=== PATIENT | female | born 1965 | race Caucasian/White ===

== ENCOUNTER 2019-05-10 10:19 | Inpatient (IN) ==
--- NOTE | 2019-04-26 16:42 | PAT Medication Instructions ---
Medication Instructions Date of Service April 26, 2019 Home Medications tecxhgf-iiznigzuwnxsp-ivbzenxd [Excedrin Migraine] 2 tab PO Q6H PRN biotin 10,000 mcg PO QAM 04/21/19 [History Confirmed 04/21/19] cyanocobalamin (vitamin B-12) 5,000 mcg PO QAM 04/21/19 [History Confirmed 04/21] gabapentin 300 mg PO BID PRN 04/21/19 [History Confirmed 04/21/19] ibuprofen 800 mg PO Q6H PRN 04/21/19 [History Confirmed 04/21/19] multivitamin 1 tab PO QAM 04/21/19 [History Confirmed 04/21/19] ASK your surgeon for instructions epffzjt-wgmckgbwwlibt-etanyisq [Excedrin Migraine] 2 tab PO Q6H PRN ibuprofen 800 mg PO Q6H PRN 04/21/19 [History Confirmed 04/21/19] DO NOT take the morning of surgery cyanocobalamin (vitamin B-12) 5,000 mcg PO QAM 04/21/19 [History Confirmed 04/21/19] multivitamin 1 tab PO QAM 04/21/19 [History Confirmed 04/21/19] biotin 10,000 mcg PO QAM 04/21/19 [History Confirmed 04/21/19] Take morning of surgery With a small sip of water, OTHERWISE NOTHING TO EAT OR DRINK AFTER MIDNIGHT: gabapentin 300 mg PO BID PRN (if needed) Other Notes If you have any questions please call us at [phone] or [phone] or [phone] or [phone]
--- NOTE | 2019-04-27 12:18 | Anesthesiology Consultation ---
Date of Service April 27, 2019 Assessment & Plan (1) Encounter for pre-operative examination: Chart Review Chart Review: Acceptable Risk for Surgery (pending surgeon ordered PCP clearance ) and Patient seen in Pre Admission Testing Surgeon's office informed of abnormal urine culture Pt seeing PCP on 04/29/19 for surgeon ordered clearance- awaiting note Pt menopausal- no HCG needed AM of surgery Teaching & Discussion Pre-Anesthesia Teaching/Discussion Notes: Instructed NPO after midnight before surgery,except medications with 15 cc of water. Medication instructions provided according to the PAT guidelines. History Surgery Operation Date: 05/10/19 13:05 Proposed Procedures p L5-S1 Decompression and Fusion, Spinal Cord Monitoring - Vikas Hough, Height/Weight Height: 5 ft 1 in Weight: 74.3 kg Allergies Allergy/AdvReac Type Severity Reaction Status Date / Time No Known Allergies Allergy Verified 04/21/19 13:14 Medications Home Medications Medication Instructions Recorded Confirmed Last Taken nxwxtzv-ttsclhmsplizc-ryvgqkwt 2 tab PO Q6H PRN 04/21/19 04/21/19 Unknown [Excedrin Migraine] biotin 10,000 mcg PO QAM 04/21/19 04/21/19 Unknown cyanocobalamin (vitamin B-12) 5,000 mcg PO QAM 04/21/19 04/21/19 Unknown gabapentin 300 mg PO BID PRN 04/21/19 04/21/19 Unknown ibuprofen 800 mg PO Q6H PRN 04/21/19 04/21/19 Unknown multivitamin 1 tab PO QAM 04/21/19 04/21/19 Unknown Past Medical History Medical History Chronic back pain TO RIGHT LEG/FOOT Migraine HX Exercise / Class Metabolic Activity II 4-5 Yardwork/Stairs/Walk up hill (one flight of stairs- no SOB or chest pain ) Past Family History Family History Aunt Family history of diabetes mellitus Brother Family history of diabetes mellitus Mother Family hx of colon cancer Past Surgical History Surgical History History of section X 3 History of colonoscopy History of esophagogastroduodenoscopy (EGD) Past Anesthesia History No Hx of Anesthesia Complications and No Family Hx of Anesthesia Complications Morphine causes N/V History of PONV No Hx of PONV and No Hx of Motion Sickness Social History Smoking Status: Former smoker Do You Dip or Chew Tobacco: No Smoking End Date: QUIT AGE 30 YRS Hx Alcohol Use: Yes Alcohol type: beer, wine and hard liquor alcohol intake frequency: holidays/special occasions only Hx Substance Use: No Review of Systems Patient denies chest pain, shortness of breath, dyspnea on exertion, reflux, cough, wheezing, palpitations. Physical Exam Vital Signs VITALS BP 155/92 P 62 TEMP 98.7 SP02 99% RESP 16 Constitutional no acute distress ENMT Thyromental Distance: > or= 3.5 Finger Breadths Mallampati Class: III Denies any missing, loose, or chipped teeth. No caps or veneers Neck + limited neck extension (minimal- no significant pain ) Respiratory normal respiratory effort; no respiratory distress and does not use accessory muscles Auscultation: lungs clear to auscultation bilaterally Cardiovascular Rate/Rhythm: regular rate and regular rhythm Heart Sounds: no murmur Vessels: no carotid bruit Neurologic moves all extremities Psychiatric Orientation: alert Testing Laboratory Results 04/27/19 12:28 04/27/19 12:28 PT 10.3 Seconds (9.0-12.0) 04/27/19 12:28 INR 1.0 (0.9-1.1) 04/27/19 12:28 APTT 25.3 Seconds (21.0-31.0) 04/27/19 12:28 Urine Color Yellow 04/27/19 Unknown Urine Appearance Clear (Clear) 04/27/19 Unknown Urine pH 8.0 (4.5-7.5) H 04/27/19 Unknown Ur Specific [place] 1.019 (1.000-1.030) 04/27/19 Unknown Urine Protein Negative (Negative) 04/27/19 Unknown Urine Glucose (UA) Negative (Negative) 04/27/19 Unknown Urine Ketones Negative (Negative) 04/27/19 Unknown Urine Nitrite Positive (Negative) A 04/27/19 Unknown Ur Leukocyte Esterase Trace (Negative) H 04/27/19 Unknown Urine WBC (Auto) 5-10 /hpf (0-5) H 04/27/19 Unknown Urine RBC (Auto) 0-4 /hpf (0-4) 04/27/19 Unknown U Hyaline Cast (Auto) 1-5 /lpf (0-5) 04/27/19 Unknown U Epithel Cells (Auto) 10-20 /lpf (0-5) H 04/27/19 Unknown Urine Bacteria (Auto) 4+ (Negative) H 04/27/19 Unknown Blood Type O Positive 04/27/19 12:28 Antibody Screen NEGATIVE 04/27/19 12:28 04/27/19 Unknown Urine Culture - Preliminary Urine,Clean Catch Gram negative bacilli Electrocardiogram Date: 04/27/19 Findings: + SB @ (49) Chest X-Ray Date: 04/27/19 Findings: + NAD
--- NOTE | 2019-04-27 13:02 | XRay Report ---
XR chest Pre-admission PA/Lat CLINICAL HISTORY: 54 years-old Female presenting with preoperative assessment. TECHNIQUE: PA and lateral views of the chest were obtained. COMPARISON: None. FINDINGS: Cardiomediastinal silhouette normal. Lungs and pleural spaces clear. Osseous structures normal. Upper abdomen normal. IMPRESSION: 1. No acute cardiopulmonary disease. ACT 112: Negative or not required by law. Electronically signed by: Larry Gallardo M.D. 04/27/2019 1:00 PM
[2019-04-27 13:54] LABS: Basophils # (auto) 0.02 K/uL (0-0.2); Basophils % (auto) 0.2 %; Eosinophils # (auto) 0.14 K/uL (0-0.5); Eosinophils % (auto) 1.4 %; Hematocrit (blood only) 39.4 % (37-47); Hemoglobin 13.1 g/dL (12.0-16.0); Immature Granulocytes # (auto) 0.03 K/uL (0.00-0.02); Immature Granulocytes % (auto) 0.3 %; Lymphocytes # (auto) 2.48 K/uL (1.2-3.4); Lymphocytes % (auto) 25.6 %; Mean Corpuscular Hemoglobin 30.1 pg (25-34); Mean Corpuscular Hgb Conc 33.2 g/dL (32-36); Mean Corpuscular Volume 90.6 fL (80-100); Mean Platelet Volume 10.6 fL (7.4-10.4); Monocytes # (auto) 0.67 K/uL (0.11-0.59); Monocytes % (auto) 6.9 %; Neutrophils # (auto) 6.35 K/uL (1.4-6.5); Neutrophils % (auto) 65.6 %; Platelet Count 326 K/uL (130-400); RDW Coefficient of Variation 12.9 % (11.5-14.5); RDW Standard Deviation 42.8 fL (36.4-46.3); Red Blood Count 4.35 M/uL (4.2-5.4); White Blood Count 9.69 K/uL (4.8-10.8)
[2019-04-27 14:06] LABS: Appearance Urine Clear (Clear); Bacteria Urine Automated 4+ (Negative); Bilirubin Urine Negative (Negative); Blood Urine Negative (Negative); Color Urine Yellow; Glucose Urine UA Negative (Negative); Ketones Urine Negative (Negative); Leukocyte Esterase Urine Trace (Negative); Nitrite Urine Positive (Negative); Protein Urine Negative (Negative); RBC Urine Automated 0-4 /hpf (0-4); Specific Gravity Urine 1.019 (1.000-1.030); Urobilinogen Urine Negative (Negative)
[2019-04-27 14:08] LABS: BUN Creatinine Ratio 30.9 (10-20); Calcium 9.6 mg/dl (8.5-10.1); Creatinine Clr Calc Pharmacy 95.6 ml/min; Est GFR (African American) 118.5; Est GFR (Non-African American) 102.2; Potassium 4.3 mmol/L (3.5-5.1)
[2019-04-27 14:23] LABS: Partial Thromboplastin Ratio 0.9; Partial Thromboplastin Time 25.3 Seconds (21.0-31.0); Prothrombin Time 10.3 Seconds (9.0-12.0)
--- NOTE | 2019-04-27 23:05 | Electrocardiogram Report ---
Test Reason : Blood Pressure : / mmHG Vent. Rate : 049 BPM Atrial Rate : 049 BPM P-R Int : 120 ms QRS Dur : 080 ms QT Int : 458 ms P-R-T Axes : 059 015 021 degrees QTc Int : 413 ms Sinus bradycardia Otherwise normal ECG No previous ECGs available Confirmed by Usman Villafana ([id number]) on 04/27/2019 11:04:55 PM Referred By: Vikas Hough Confirmed By:Usman Villafana
[~2019-05-10 10:19] MED LIST: ACETAMINOPHEN 500 MG TAB PO SCH; CEFAZOLIN 1000MG 1,000 MG/7.5 ML SYR IV SCH; CeleBREX 200 MG CAP PO SCH; GABAPENTIN 900 MG DOSE PO SCH; LACTATED RINGER'S 1,000 ML IV SCH
[2019-05-10] MEDS ORDERED: NEOSTIGMINE METHYLSULFATE 1 MG/ML 10ML VIAL ONE (11:00)
[2019-05-10] MEDS ORDERED: ROCURONIUM BROMIDE 10 MG/ML 5 ML VIAL ONE (11:00)
[2019-05-10] MEDS ORDERED: PROPOFOL IV EMULSION 10 MG/ML 20 ML VIAL IV ONE (11:00)
[2019-05-10] MEDS ORDERED: MIDAZOLAM HCL 1 MG/ML 2ML VIAL ONE (11:00)
[2019-05-10] MEDS ORDERED: ONDANSETRON INJ 2 MG/ML 2 ML VIAL ONE (11:00)
[2019-05-10] MEDS ORDERED: fentaNYL citrate 100 MCG/2 ML VIAL ONE (11:00)
[2019-05-10] MEDS ORDERED: LIDOCAINE HCL 2% 2 ML VIAL/AMP(20MG/ML) INFIL ONE (11:00)
[2019-05-10] MEDS ORDERED: DEXAMETHASONE SOD INJ 4 MG/ML VIAL ONE (11:00)
[2019-05-10] MEDS ORDERED: GLYCOPYRROLATE 0.2 MG/ML VIAL ONE (11:00)
--- NOTE | 2019-05-10 13:13 | History & Physical Bridge Note ---
Date of Service May 10, 2019 History & Physical Bridge Note I have examined the patient, reviewed the History & Physical and in the interval since the performance of the History & Physical I have noted the following changes of clinical significance: no changes noted
--- NOTE | 2019-05-10 13:14 | History & Physical Report ---
Date of Service May 10, 2019 Assessment & Plan (1) Spinal stenosis of lumbar region with radiculopathy: Decompression fusion L5-S1 Present on Admission?: Yes History of Present Illness Chief Complaint: Back and leg pain Primary Care Provider: Aki De Anda This is a 54-year-old female that presents with chronic persistent back and leg pain after failing extensive course of nonoperative care is here for surgical intervention. Allergies Allergy/AdvReac Type Severity Reaction Status Date / Time No Known Allergies Allergy Verified 05/10/19 10:37 Home Medications Home Medications Medication Instructions Recorded Confirmed Type vqeuypc-pjnajrlgklxyv-zjfvrfyf 2 tab PO Q6H PRN 04/21/19 05/10/19 History [Excedrin Migraine] biotin 10,000 mcg PO QAM 04/21/19 05/10/19 History cyanocobalamin (vitamin B-12) 5,000 mcg PO QAM 04/21/19 05/10/19 History gabapentin 300 mg PO BID PRN 04/21/19 05/10/19 History ibuprofen 800 mg PO Q6H PRN 04/21/19 05/10/19 History multivitamin 1 tab PO QAM 04/21/19 05/10/19 History lisinopril 10 mg PO DAILY 05/07/19 05/10/19 History Past Med/Surg History Medical History Chronic back pain TO RIGHT LEG/FOOT Migraine HX Surgical History (Updated 05/10/19 @ 10:36 by Alice Cooper RN) History of section X 3 History of colonoscopy History of esophagogastroduodenoscopy (EGD) Hx of tubal ligation (Acute) Family History Aunt Family history of diabetes mellitus Brother Family history of diabetes mellitus Mother Family hx of colon cancer Social History Preferred Language: Italian Communication Ability: Effective Choir Member Required: No Beliefs That Will Affect Care: None Current Living Situation: Alone Other Information That Helps Us Care for You: No Feels Safe at Home: Yes Safety Concerns: Feels Safe At This Time Smoking Status: Former smoker Do You Dip or Chew Tobacco: No ; Smoking End Date: QUIT AGE 30 YRS ; Second Hand Exposure: No ; Hx Alcohol Use: Yes Alcohol type: beer, wine and hard liquor Hx Substance Use: No Physical Exam Physical Exam: Patient is alert and oriented neurologically intact. Results & Data Vital Signs (Past 12 Hours) Vital Signs Temp Pulse Resp BP Pulse Ox 05/10/19 10:43 36.5 C 67 16 129/88 99
[2019-05-10] MEDS ORDERED: BUPIVACAINE/EPINEPHRINE 0.5% MPF 1:200,000 10 ML VIAL ONE (13:22)
[2019-05-10] MEDS ORDERED: BACITRACIN INJ 50,000 UNIT VIAL ONE (13:22)
[2019-05-10] MEDS ORDERED: METOCLOPRAMIDE HCL INJ 5 MG/ML 2 ML VIAL IV PRN ×2 (13:25→16:15)
[2019-05-10] MEDS ORDERED: ePHEDrine sulfate 50 MG/ML AMP IV PRN (13:25)
[2019-05-10] MEDS ORDERED: HYDROmorphone INJ 2 MG/ML SYR/VIAL IV PRN (13:25)
[2019-05-10] MEDS ORDERED: ONDANSETRON INJ 2 MG/ML 2 ML VIAL IV PRN ×2 (13:25→16:15)
[2019-05-10] MEDS ORDERED: ATROPINE SULFATE 0.1 MG/ML 10ML SYR IV PRN (13:25)
[2019-05-10] MEDS ORDERED: PROMETHAZINE HCL 12.5 MG in SODIUM CHLORIDE 0.9% 50 ML IV PRN ×2 (13:25→16:15)
[2019-05-10] MEDS ORDERED: FLOSEAL HEMOSTATIC MATRIX 10ML TOP ONE (14:27)
--- NOTE | 2019-05-10 15:11 | Operative Report ---
Post Operative Report Pre & Post Diagnosis Operation Date: 05/10/19 12:45 Pre-Op Diagnosis: Radiculopathy, Lumbar Region Post-Op Diagnosis: Radiculopathy, Lumbar Region I identified the patient and participated in the time-out.: Yes Procedure Operation Date: 05/10/19 12:45 Actual Procedures #1 lumbar decompression with medial facetectomies and foraminotomies bilaterally at L5-S1. #2 posterior spinal fusion L5-S1. #3 placement posterior instrumentation L5-S1. #4 interbody fusion L5-S1. #5 placement peek cage 10 x 22 mm at L5-S1. #6 placement of locally harvested morselized autograft in the posterior lateral gutters. #7 placement infuse collagen sponge, master graft in the posterior lateral gutters and ostial amp and interbody space. Surgeon Vikas Hough DO Sales Incentive Analyst Mckenna Chaudhry Estimated Blood Loss 50 Findings Consistent with Post-Op Diagnosis Specimens None Indications This is a 54-year-old female who presents with above-mentioned diagnosis after failing extensive course of nonoperative care is here for surgical intervention. Description of Procedure Patient was met with identified informed consent obtained. Patient was then taken to the operative suite underwent intubation placed in the prone position the [place] table on top of the Frank frame. All bony prominences well-padded eyes inspected to ensure no external pressure placed upon up at this point the lumbar spine was prepped and draped in a normal sterile fashion. Sharp dissection with the assistance of a cartilage form down to and exposing the lamina and transverse processes of L5 and the sacral ala bilaterally. From a caudal cephalad fashion complete laminectomy of L5 was performed including bilateral medial facetectomies and foraminotomies addressing severe stenosis. Pedicle screws were then placed in L5 and S1 levels bilaterally with the assistance of fluoroscopy the proper sized mariaelena placed. By way of a transforaminal approach on the right a complete discectomy of L5-S1 was performed endplates curetted to subcortical bleeding bone and a 10 x 22 mm peek cage filled with osteo-bone graft tapped in position. The rods were then locked in final position bilaterally. Transverse processes of L5 and the sacral ala bur to subcortical bleeding bone. Infuse collagen sponge master graft local autograft was then placed in the posterior lateral gutters. 15 round RITA drain inserted. Incision was then closed with 1 Vicryl in the fascia 2-0 Vicryl subcutaneously and 4 Monocryl for final skin closure. Steri-Strips dressings placed. Patient will continue to PACU stable addition. Please note Mckenna Chaudhry present throughout the entire procedure involved the patient positioning complex portions of the surgery and final skin closure. Lastly spinal cord monitoring was utilized that the procedure no changes noted. I attest to the content of the Intraoperative Record and any orders documented therein. Any exceptions are noted below.
--- NOTE | 2019-05-10 15:30 | Fluoroscopy Report ---
INTRAOPERATIVE RADIOGRAPHS CLINICAL HISTORY: L5-S1 spinal fusion. Fluoroscopy time: 21 seconds. FINDINGS: 2 spot fluoroscopic views of the lumbar spine are presented. There has been discectomy at L 5-S1 with laminectomy and posterior fusion at this level. Interpedicular screws are in place. The ort hopedic hardware appears intact. IMPRESSION: Intraoperative images from L5-S1 spinal fusion as above. Electronically signed by: Zain Leon M.D. 05/10/2019 3:28 PM
[2019-05-10] MEDS: fentaNYL citrate 100 MCG/2 ML VIAL IV PRN ×2 (15:35→15:40)
--- NOTE | 2019-05-10 15:53 | Anesthesiology Progress Note ---
Date of Service May 10, 2019 Anesthesia Post Procedure Vital Signs Vital Signs: Temp Pulse Resp BP Pulse Ox 05/10/19 15:50 36.6 C 47 L 16 143/80 H 96 05/10/19 15:40 47 L 16 154/78 H 100 05/10/19 15:30 53 L 16 148/93 H 99 05/10/19 15:24 36.3 C L 69 16 170/75 H 100 05/10/19 10:43 36.5 C 67 16 129/88 99 Pain Intensity Lower Back: Pain Intensity: 4 Transfer of Care Handoff Completed per policy Notes Mental Status: alert / awake / arousable Patient Amnestic to Procedure: Yes Nausea / Vomiting: adequately controlled Pain: adequately controlled Airway Patency, RR, SpO2: stable & adequate BP & HR: stable & adequate Hydration State: stable & adequate Anesthetic Complications: no major complications apparent
[2019-05-10] MEDS ORDERED: bisacodyL 10 MG SUPP PR PRN (16:15)
[2019-05-10] MEDS ORDERED: LORazepam 0.5 MG/1 ML VIAL IV PRN (16:15)
[2019-05-10] MEDS ORDERED: ONDANSETRON 4 MG OD TAB PO PRN (16:15)
[2019-05-10] MEDS ORDERED: ALUMINUM/MAGNESIUM SUSP 30 ML UDC PO PRN (16:15)
[2019-05-10] MEDS ORDERED: NALOXONE HCL 0.4 MG/1 ML VIAL/CARP IV PRN (16:15)
[2019-05-10] MEDS ORDERED: DO NOT ADMINISTER FLU VACCINE PRN (16:15)
[2019-05-10] MEDS ORDERED: ACETAMINOPHEN 500 MG TAB PO PRN (16:15)
[2019-05-10] MEDS ORDERED: ACETAMINOPHEN 1,000 MG/100 ML VIAL IV PRN (16:15)
[2019-05-10] MEDS ORDERED: MAGNESIUM HYDROXIDE SUSP 30 ML UDC PO PRN (16:15)
[2019-05-10] MEDS ORDERED: HYDROmorphone INJ 1 MG/ML SYRINGE IV PRN (16:15)
[2019-05-10] MEDS ORDERED: FAMOTIDINE 20 MG TAB PO PRN (16:15)
[2019-05-10] MEDS ORDERED: HYDROmorphone INJ 0.5 MG/0.5 ML SYR IV PRN (16:15)
[2019-05-10] MEDS ORDERED: SOD PHOSPHATE/SOD BIPHOSPHATE ENEMA 132 ML BTL PR PRN (16:15)
[2019-05-10] MEDS ORDERED: DO NOT ADMINISTER PNEUMOCOCCAL VACCINE PRN (16:15)
[2019-05-10] MEDS: KETOROLAC TROMETHAMINE 15 MG/ML VIAL IV SCH ×2 (17:11→23:40)
[2019-05-10] MEDS: OXYCODONE HCL IR 5 MG TAB (IMMEDIATE RELEASE) PO PRN (18:17)
[2019-05-10] MEDS: LORazepam 0.5 MG TAB PO PRN (19:32)
[2019-05-10] MEDS: DOCUSATE SODIUM/SENNA 50/8.6MG TAB PO SCH (20:23)
[2019-05-10] MEDS: GABAPENTIN 300 MG CAP PO SCH (20:23)
[2019-05-10] MEDS: LACTATED RINGER'S 1,000 ML IV SCH (22:15)
[2019-05-10] MEDS: CEFAZOLIN 2000MG 2,000 MG/15 ML SYR IV SCH (22:16)
[2019-05-11] MEDS: CEFAZOLIN 2000MG 2,000 MG/15 ML SYR IV SCH (05:06)
[2019-05-11] MEDS: POLYETHYLENE (MIRALAX) 17 GM PACK PO SCH ×3 (05:06→17:24)
[2019-05-11] MEDS: KETOROLAC TROMETHAMINE 15 MG/ML VIAL IV SCH ×2 (05:06→12:38)
[2019-05-11] MEDS: LACTATED RINGER'S 1,000 ML IV SCH ×2 (05:08→12:38)
[2019-05-11 05:25] LABS: Eosinophils # (auto) 0.01 K/uL (0-0.5); Eosinophils % (auto) 0.1 %; Hematocrit (blood only) 31.8 % (37-47); Hemoglobin 10.6 g/dL (12.0-16.0); Immature Granulocytes # (auto) 0.03 K/uL (0.00-0.02); Immature Granulocytes % (auto) 0.3 %; Lymphocytes # (auto) 1.33 K/uL (1.2-3.4); Lymphocytes % (auto) 11.3 %; Mean Corpuscular Hemoglobin 29.4 pg (25-34); Mean Corpuscular Hgb Conc 33.3 g/dL (32-36); Mean Corpuscular Volume 88.3 fL (80-100); Monocytes # (auto) 0.65 K/uL (0.11-0.59); Monocytes % (auto) 5.5 %; Neutrophils # (auto) 9.71 K/uL (1.4-6.5); Neutrophils % (auto) 82.8 %; Platelet Count 233 K/uL (130-400); RDW Coefficient of Variation 13.1 % (11.5-14.5); RDW Standard Deviation 42.3 fL (36.4-46.3); White Blood Count 11.73 K/uL (4.8-10.8)
[2019-05-11 05:50] LABS: BUN Creatinine Ratio 27.1 (10-20); Calcium 8.7 mg/dl (8.5-10.1); Creatinine Clr Calc Pharmacy 73.2 ml/min; Est GFR (African American) 95.4; Est GFR (Non-African American) 82.3; Potassium 4.5 mmol/L (3.5-5.1)
[2019-05-11] MEDS: LORazepam 0.5 MG TAB PO PRN (07:44)
--- NOTE | 2019-05-11 08:13 | Anesthesiology Progress Note ---
Date of Service May 11, 2019 Anesthesia Post Procedure Vital Signs Vital Signs: Temp Pulse Pulse Resp BP BP Pulse Ox 05/11/19 07:51 36.2 C L 54 L 16 107/63 96 05/11/19 03:23 96/58 L 05/11/19 03:12 36.4 C L 43 L 15 82/56 L 82/42 L 97 05/10/19 23:10 36.5 C 75 16 86/51 L 98 05/10/19 19:18 36.7 C 62 18 97/61 L 97 05/10/19 18:14 36.7 C 55 L 17 97/68 L 97 05/10/19 17:05 36.4 C L 43 L 16 96/59 L 96 05/10/19 16:35 36.4 C L 17 100/66 99 05/10/19 16:05 36.7 C 48 L 16 119/75 97 05/10/19 15:50 36.6 C 47 L 16 143/80 H 96 05/10/19 15:40 47 L 16 154/78 H 100 05/10/19 15:30 53 L 16 148/93 H 99 05/10/19 15:24 36.3 C L 69 16 170/75 H 100 05/10/19 10:43 36.5 C 67 16 129/88 99 Pain Intensity Lower Back: Pain Intensity: 6 Notes Mental Status: alert / awake / arousable and participated in evaluation Patient Amnestic to Procedure: Yes Nausea / Vomiting: see Notes below Pain: adequately controlled Airway Patency, RR, SpO2: stable & adequate BP & HR: stable & adequate Hydration State: stable & adequate Anesthetic Complications: no major complications apparent and Pt Satisfied with anesthetic care
[2019-05-11] MEDS: lisinopriL 10 MG TAB PO SCH (08:36)
[2019-05-11] MEDS: CYANOCOBALAMIN (VITAMIN B-12) 2,500 MCG TAB.SUBL SL SCH (08:36)
[2019-05-11] MEDS: GABAPENTIN 300 MG CAP PO SCH ×2 (08:37→19:57)
[2019-05-11] MEDS ORDERED: NON-FORMULARY MEDICATION (Biotin 10,000 MCG) PO SCH (09:00)
--- NOTE | 2019-05-11 09:41 | Orthopedic Progress Note ---
Date of Service May 11, 2019 Assessment & Plan (1) Spinal stenosis of lumbar region with radiculopathy: This time initiate physical therapy monitor her RITA output anticipate discharge home in the next few days. Present on Admission?: Yes Subjective Back pain controlled complaining of some modest right leg pain. Physical Exam Physical Exam: On exam she has good strength testing appears comfortable. Results & Data ([facility]) Vital Signs (Past 12 Hours) Vital Signs Temp Pulse Resp BP BP Pulse Ox 05/11/19 07:51 36.2 C L 54 L 16 107/63 96 05/11/19 03:23 96/58 L 05/11/19 03:12 36.4 C L 43 L 15 82/56 L 82/42 L 97 05/10/19 23:10 36.5 C 75 16 86/51 L 98
[2019-05-11] MEDS: OXYCODONE HCL IR 5 MG TAB (IMMEDIATE RELEASE) PO PRN ×2 (10:19→19:58)
[2019-05-11] MEDS: MULTIVITAMIN TAB PO SCH (10:19)
[2019-05-11] MEDS: DOCUSATE SODIUM/SENNA 50/8.6MG TAB PO SCH (19:57)
[2019-05-11] MEDS: TRAMADOL HCL 50 MG TABLET PO PRN (22:31)
[2019-05-12] MEDS: POLYETHYLENE (MIRALAX) 17 GM PACK PO SCH ×3 (00:16→11:58)
[2019-05-12] MEDS: TRAMADOL HCL 50 MG TABLET PO PRN ×3 (07:17→18:20)
[2019-05-12] MEDS: MULTIVITAMIN TAB PO SCH (07:20)
[2019-05-12] MEDS: GABAPENTIN 300 MG CAP PO SCH (07:21)
[2019-05-12] MEDS: CYANOCOBALAMIN (VITAMIN B-12) 2,500 MCG TAB.SUBL SL SCH (07:24)
[2019-05-12] MEDS: lisinopriL 10 MG TAB PO SCH (07:25)
--- NOTE | 2019-05-12 11:11 | Discharge Summary ---
Date of Service May 12, 2019 Admission HPI Per Admitting Provider This is a 54-year-old female that presents with chronic persistent back and leg pain after failing extensive course of nonoperative care is here for surgical intervention. Principal Diagnosis Lumbar spinal stenosis with neurogenic claudication Discharge Data Allergies Allergy/AdvReac Type Severity Reaction Status Date / Time No Known Allergies Allergy Verified 05/10/19 10:37 Consultations 05/10/19 16:15 Consult Case Management - Discharge Planning Routine Procedures Performed Operation Date: 05/10/19 12:45 Actual Procedures p L5-S1 Decompression And Fusion, interbody cage at L5-S1, use of Infuse, use of Osteoamp, Spinal Cord Monitoring(Not Applicable) - Vikas Hough DO Ordered Studies 05/10/19 12:45 FL fluoroscopy <1hr Routine FL lumbar spine 2-3V Routine Hospital Course (1) Spinal stenosis of lumbar region with radiculopathy: Patient went lumbar decompression fusion tolerated well taken to orthopedic for postoperative. Postop day 1 she was up and ambulating pain improving. Postop day #2 she was feeling much improved back pain controlled leg pain improved neurologically intact sub-subsequently discharged home. Discharge orders instructions from the chart for further review. Total Time Total Time Spent Total Time Spent (In Minutes): 20 minutes Discharge Plan Discharge Items Patient Disposition: Home - Self-Care Reason For Visit: Radiculopathy, Lumbar Region Discharge Diagnosis: Lumbar radiculopathy Activity: As commented below Non-emergency contact: Primary Care Provider Call non-emergency contact if: you have any medication questions Follow-up/Referrals: Aki De Anda CRNP [Primary Care Provider] - Diet: Regular Addtl Attending Provider Instructions: ACTIVITY RECOMMENDATIONS: SELF CARE INSTRUCTIONS AFTER THORACIC/LUMBAR FUSIONS 1. You may walk to your tolerance. It is good exercise for your legs and back. Expect some back and intermittent leg aches and pains. 2. You may perform "counter-top" level activities (make a sandwich, ant with a project, etc.). 3. No bending or lifting of more than 10 pounds or back twisting of any nature (roll like a log when turning in bed). 4. You may ride in a car for 20-30 minutes at a time. No driving until after your first visit with your doctor. 5. Frequent changes of position and restricting sitting to 30 minutes at a time will help limit the amount of back spasms and stiffness you may experience. 6. You may discontinue the use of ambulatory aids (cane, crutches, etc.) once your strength and confidence allow. 7. You may health coordinator the shower and let water strike your incision when you arrive home at least once daily. Do not take a tub bath, sit in a hot tub or go into a swimming pool until after your first recheck in the office. SPECIAL CARE INSTRUCTIONS: VERY IMPORTANT TO READ AND REVIEW A. Your surgical incision has been closed with a cosmetic suture under the skin that will dissolve in about 6 weeks. In 14 days, you can use a pair of clean scissors and cut the suture that is left outside of the skin at the ends of your incision. 1. The small skin tapes can be removed 7 days after surgery if they have not fallen off by that point. 2. You may keep the wound open to air as much as possible to promote healing after post-op day number 5 unless told otherwise by your doctor. 3. If you think the wound looks like it is becoming infected (redness or worsening drainage) and/or you are experiencing fever, chill or worsening back pain and muscle spasms, contact the office so that we may evaluate you as soon as possible. B. Complications are uncommon, but please contact us if you have any signs or symptoms of: 1. wound infection (fever higher than 102.5 degrees F, redness, separation of wound, drainage, or increasing pain from the incision) 2. blood clots in legs (pain, swelling, redness and warmth in legs) 3. urinary tract infection (fever higher than 102.5 degrees F, burning upon urination or increased frequency of urination) 4. nerve problems (inability to walk on your toes or heels, numbness, loss of bowel or bladder control) 5. any other symptoms that concern you C. Please call the office at if you have any concerns or questions about your operation or recovery. D. No smoking! Smoking drastically decreases the chance of a solid fusion. E. Do not take any anti-inflammatory medications (Indocin, Advil, Motrin, Aspirin, Naprosyn, etc.) as these may inhibit the chance of a solid fusion. Tylenol is okay to take for pain. MANAGING PAIN AFTER SPINAL SURGERY 1. Narcotic medication is intended for short-term use and will be provided for surgical pain. Surgical pain usually lasts for a period of 4-6 weeks. Narcotic medication includes Percocet, Vicodin, Darvocet, Tylenol #3 or Lortab. 2. Longer-term pain is more appropriately treated with non-narcotic medication such as Tylenol ES. 3. Muscle spasm is not appropriately treated with narcotics. Muscle relaxers such as Soma, Flexeril or Skelaxin can be used along with Tylenol ES. 4. Remember that we all live with some "aches and pains". This is not unusual or uncommon after an injury or as we get older. a. Back pain is expected and may include muscle spasms for 4 to 6 weeks after surgery. The pain should gradually improve. If the pain worsens for no apparent reason, please contact the office. b. Intermittent leg pain may also be experienced and should not be concerned about unless it worsens for no apparent reason. If so, please contact the office. 5. We will provide appropriate medication within the normal guidelines of their prescribed use. We will also be very cautious and aware of potential abuse and extended duration of patients' medication needs. a. Pain medications are for your comfort and to assist with sleep and rest so that the tissue can heal. They are not provided in order to return to normal activity and should not be used through the day. To do so or worsening pain at night can result from ongoing tissue damage and development of tolerance to the prescribed medicine. 6. Please allow 2-3 days to process refills. Prescriptions will not be mailed but must be picked up at the office. FOLLOW UP VISIT: Keep your scheduled follow-up appointment. Any questions, please call the office at . Pending Studies at Discharge: No Stand-Alone Forms: [facility], Smoking Cessation Medications and DC Order Prescriptions: New gabapentin [Neurontin] 600 mg tablet 600 mg PO TID Qty: 90 RF: 0 tramadol 50 mg tablet 50 mg PO Q6H PRN (Reason: pain, moderate) Qty: 30 RF: 0 oxycodone 5 mg tablet 5 mg PO Q6H PRN (Reason: pain, severe) Qty: 30 RF: 0 Continued multivitamin Tablet 1 tab PO QAM RF: 0 biotin 10,000 mcg Capsule 10,000 mcg PO QAM RF: 0 gabapentin 300 mg Capsule 300 mg PO BID PRN (Reason: Pain) RF: 0 Excedrin Migraine 250-250-65 mg Tablet 2 tab PO Q6H PRN (Reason: Migraine Headache) RF: 0 cyanocobalamin (vitamin B-12) 5,000 mcg Capsule 5,000 mcg PO QAM RF: 0 lisinopril 10 mg Tablet 10 mg PO DAILY RF: 0 Discontinued ibuprofen 200 mg Tablet 800 mg PO Q6H PRN (Reason: Pain) RF: 0 Discharge Orders: Discharge Order (Routine); Ordered 05/12/19 Ordered By: Vikas Hough Admission Data Admit Date/Time: 05/10/19 15:28 Attending Provider: Vikas Hough Admit Provider: Vikas Hough Primary Care Provider: Aki De Anda
== END 2019-05-12 18:45 | disposition home or self-care (01) | DRG 455 ==
LOC: ASU 10:19 → 3E 15:28